=== PATIENT | female | born 1955 | race Caucasian/White ===

== ENCOUNTER 2023-04-01 12:50 | Emergency (ER) | payer SELFPAY ==
[2023-04-01 12:53] VITALS: BP 140/75; PULSE 71; RESP 18; TEMP 36.5; O2SAT 100
[2023-04-01] MEDS: Acetaminophen 500 MG TAB 1000 MG PO (13:30)
[2023-04-01] MEDS: Ketorolac 15 MG/ML VIAL IM (13:30)
--- NOTE | 2023-04-01 13:50 | DI.RAD_ITS ---
Exam(s) XR HAND RT COMPLETE EXAM: XR HAND RT COMPLETE CLINICAL HISTORY: dog, lac down to tendon volar hand, lacs digits. TECHNIQUE: 2D digital imaging was performed. COMPARISON: No exams were available for comparison FINDINGS: 3 views There is air in the soft tissues over the dorsal medial aspect of the hand. Appears to be soft tissu e injury-laceration. No fractures evident. No radiopaque foreign body. No evidence of osteomyelitis. IMPRESSION: Soft tissue laceration as described above. No acute osseous findings. DATA REPOSITORY: RADIATION DOSE DELIVERED:
--- NOTE | 2023-04-01 13:50 | DI.RAD_ITS ---
Exam(s) XR WRIST RT COMPLETE EXAM: XR WRIST RT COMPLETE CLINICAL HISTORY: dog, lac down to tendon volar hand. TECHNIQUE: 2D digital imaging was performed. COMPARISON: No exams were available for comparison FINDINGS: 3 views There is soft tissue laceration over the dorsal medial aspect of the hand. No radiopaque foreign bod y. No evidence of fracture nor bone erosion. Bone density normal. No osseous lesions. IMPRESSION: Soft tissue injury. No osseous findings. DATA REPOSITORY: RADIATION DOSE DELIVERED:
--- NOTE | 2023-04-01 14:23 | ED.GENADUL_ITS ---
Discharge Plan Disposition Patient Disposition: Home Condition: Good Discharge Details Clinical Impression: Dog bite of right hand, Laceration of hand Primary Care Provider: Damaris,Local ED Provider: Thea Marquez Home Meds and New Rx's Prescriptions: New amoxicillin-pot clavulanate 875-125 mg tablet 1 tab PO Q12H Qty: 20 0RF No Action amlodipine 5 mg tablet 5 mg PO DAILY omeprazole 20 mg capsule,delayed release(DR/EC) 20 mg PO DAILY zolpidem 5 mg tablet 5 mg PO DAILY rosuvastatin 5 mg tablet 5 mg PO DAILY duloxetine 20 mg capsule,delayed release(DR/EC) 20 mg PO DAILY Discharge Instructions Instructions: Animal Bite (ED), Care For Your Stitches (ED), Laceration (ED) Additional Instructions: Take the antibiotic twice a day until it is all gone. Take tylenol and ibuprofen over the counter as needed for pain; follow the directions on the bottle. Keep your wound clean and dry. You can use antibiotic ointment once a day. Call your primary care doctor tomorrow to schedule an appointment to be seen within the next 4 days to follow up on your visit here. Have your sutures removed at your PCP office. Return to the emergency department for new or worsening symptoms including thick green/white discharge from your wound, severe pain, numbness/tingling, difficulty using your hand, fever, or if you have any other concerns. Referrals: [facility] [Provider Group] Medical Decision Making 68yo F with HTN presenting for dog bite to right hand; friend's dog, reportedly UTD on immunizations. Last tetanus 7 days ago. Vital signs reassuring, several lacerations to digits and large deep lac to volar surface of hand with exposed tendon. Subjectively diminished sensation to distal 4th digit, diminished strength with thumb adduction. Tylenol and Toradol for pain. PO augmentin. Plain film right hand and wrist reviewed, no displaced fracture or foreign body on my view, agree with radiology read below. Given bite to hand with exposed tendon, orthopedics consulted; wound washed out and loosely approximated with sutures. Animal bite form faxed. Discharged home; discharge instructions including return precautions were reviewed with patient who verbalized understanding. Alll questions were answered and they are in full agreement with the plan. Imaging Data Radiologic Study: Imaging: X-Ray Radiologist's impression: IMPRESSION: Soft tissue injury.? No osseous findings. Radiologic Study #2: Imaging: X-Ray Radiologist's impression: IMPRESSION: Soft tissue laceration as described above.? No acute osseous findings. HPI General Mode of arrival: ambulatory . Date/Time Provider Initiated Documentation: 04/01/23 13:01 . Limitations to Documentation: no limitations . Information obtained by: patient . HPI Narrative: 68yo F with HTN presenting for dog bite. Friend's dog (chocolate lab type) bit her right hand. Did not fall or strike her head. No pain or injury elsewhere. States no numbness/tingling and that she is able to move her hand normally. She was in her usual state of health prior to this event. No fevers, chills, rash, nausea, vomiting, chest pain, shortness of breath, or other concerns. Related Data Home Medications Medication Instructions Recorded Confirmed amlodipine 5 mg tablet 5 mg PO DAILY 04/01/23 04/01/23 amoxicillin 875 mg-potassium 1 tab PO Q12H #20 tabs 04/01/23 clavulanate 125 mg tablet duloxetine 20 mg capsule,delayed 20 mg PO DAILY 04/01/23 04/01/23 release omeprazole 20 mg capsule,delayed 20 mg PO DAILY 04/01/23 04/01/23 release rosuvastatin 5 mg tablet 5 mg PO DAILY 04/01/23 04/01/23 zolpidem 5 mg tablet 5 mg PO DAILY 04/01/23 04/01/23 Previous Rx's Medication Instructions Recorded amoxicillin 875 mg-potassium 1 tab PO Q12H #20 tabs 04/01/23 clavulanate 125 mg tablet Allergies Allergy/AdvReac Type Severity Reaction Status Date / Time Dermabond AdvReac Swelling/Ed Uncoded 04/01/23 14:54 babatunde General Stated Complaint: AnimalBite ELIZABETH: 3 Review of Systems Narrative: see HPI PFSH All Active Problems (Updated 04/01/23 @ 17:10 by Thea Marquez MD) Dog bite of right hand (Acute) Laceration of hand (Acute) Social History Smoking risk assessment performed?: No Substance use type: does not use Exam Narrative Exam Narrative: General: Alert, well appearing, well nourished Head: Normocephalic, atraumatic Neck: Trachea midline, Neck supple. Cardiac: RRR, no murmurs appreciated Resp: No respiratory distress. CTAB. Abd: Soft, non-distended, nontender : No suprapubic tenderness. No CVA tenderness. Extremities: Right hand with 3cm lunate laceration/avulsion to volar aspect of distal hand, exposed tendon, tendons appear intact. 1cm laceration between 4th and 4th digits. 1cm laceration to proximal phalanx of 4th digit. Subjectively diminished senation to distal 4th digit, otherwise sensation intact thorughout right hand. Full ROM with flexion and extension at all digits, slightly diminished strength with thumb adduction. Good radial pulse. Capillary refill intact. Neurologic: GCS 15. Moves all extremities freely against gravity Course Vital Signs Vital signs: Vital Signs Temperature 36.5 C 04/01/23 12:53 Pulse 71 04/01/23 12:53 Respiratory Rate 18 04/01/23 12:53 Blood Pressure 140/75 04/01/23 12:53 Pulse Oximetry 100 04/01/23 12:53 Temperature 36.5 C 04/01/23 12:53 Temperature Source Skin 04/01/23 12:53 Pulse 71 04/01/23 12:53 Respiratory Rate 18 04/01/23 12:53 Blood Pressure 140/75 04/01/23 12:53 Blood Pressure Position Sitting 04/01/23 12:53 Pulse Oximetry 100 04/01/23 12:53 Oxygen Delivery Method Room Air 04/01/23 12:53 Oxygen Flow Rate 0 04/01/23 12:53 Pain Level 9 04/01/23 12:53
[2023-04-01] MEDS: Amoxicillin 875/Clav. 125 TAB PO (17:36)
--- NOTE | 2023-04-02 07:29 | OCONE_ITS ---
Date of service: 04/01/23 Time of Service: 16:00 History of Present Illness History of Present Illness Chief Complaint: Dog Bite (Deep) involving Right Hand and Fingers Narrative: Tahira is a 68-year-old active female who unfortunately was attacked by dog today. The medical facilities section director was present, who thought that the dog was in his appropriate cage, however, the dog attacked Tahira grabbing onto the right hand. There is obvious complex laceration to the right hand as well as the ring finger and she presented to the emergency department. X-rays were performed which did not show any bony involvement. She denied any significant numbness or tingling about the right hand. No other injuries identified. Consults Consult date: 04/01/23 Requesting physician: Thea Marquez Consult Reason Deep Laceration from Dog Bite to Right Hand and Fingers Assessment and Plan Assessment and plan (1) Dog bite of right hand: Status: Acute (2) Laceration of hand: Status: Acute Assessment and plan: Tahira is a 68-year-old female who suffered a dog bite injury to the right hand. There are 3 primary lacerations. The 1 over the hand has tendon exposed at the depths of the wound and some involvement of the tendon itself but no jose laceration of the tendon without defect notable on examination. There is no gross contamination and therefore I recommended direct closure after extensive irrigation and debridement. The wound within the webspace is concerning, with this location, that it could involve neurovascular structures but there is no identifiable nerve injury at this time. Likewise the laceration over the ulnar aspect of the ring finger is also concerning with his location that it could involve neurovascular structures but once again she seems to test fine these are noninvolved. There is no identifiable defect with her tendon examination and therefore, while they were in the zone of injury, they do not look to be directly involved and do not need any intervention. I would recommend Augmentin here in the emergency department and a 3-day course of Augmentin for prophylaxis against the dog bite and potential infection. The wounds were dressed with Xeroform, 4 x 4's, Kerlix. I recommend that she keep these in place for at least 2 to 3 days and then change them with gauze, allow them to get wet and clean with soapy clean water. She should have a follow-up within 7 days for repeat examination and potential suture removal. Review of Systems All systems reviewed & are unremarkable except as noted in HPI and below PFSH All Active Problems Dog bite of right hand (Acute) Laceration of hand (Acute) Social History Smoking risk assessment performed?: No Substance use type: does not use Exam Narrative Exam Narrative: Evaluation of the right upper extremity shows a triangular type defect, apex proximal, over the dorsum of the hand, approximately 8 cm. There is obvious tendon and venous structures deep. There is no active bleeding. There is no gross contamination. She is able to demonstrate active finger extension as well as independent index finger extension and independent little finger extension. As she goes through range of motion including flexion and extension there is some minor trauma seen to some of the tendon but no jose tendon tearing or laceration. There is no defect with the range of motion. Likewise, she has intact thumb extension without defect although this tendon is proximal to the zone of injury. More distally she has a 2 cm laceration between the fourth and fifth digits which is into the subcutaneous tissue. She also has a small L- shaped laceration, about 2 cm, over the ulnar aspect of the ring finger. There is no defect to finger abduction or adduction. No deficit to finger flexion. She endorses full sensation over the entire little finger as well as the radial and ulnar aspects of the ring finger. No jose numbness is appreciated over the dorsum of the digits although there is some decrease sensation over the dorsum of the hand just distal to the skin flap. Results Last Vital Signs Temp 36.5 C 04/01/23 12:53 Pulse 71 04/01/23 12:53 Resp 18 04/01/23 12:53 BP 140/75 04/01/23 12:53 Pulse Ox 100 04/01/23 12:53 Imaging Imaging Studies: X-ray of the right wrist and hand shows soft tissue defect but no bony injury. No joint subluxation or dislocation. Procedures Laceration Right hand and fingers: Site: hand Side (if applicable): right Size (cm): 8 Description: flap Depth: involves muscle layer and involves tendon (Down to the peritenon but not through the tendon) Anesthetic used: lidocaine 1% Anesthesia technique: local infiltration Amount (ml): 20 Pre-repair: wound explored, irrigated extensively and deep structures intact Skin layer closed with: other (Nylon) Size (cm): 4-0 Right 4-5 webspace: Site: hand Side (if applicable): right Size (cm): 2 Description: linear Depth: simple, single layer Anesthetic used: lidocaine 1% Anesthesia technique: local infiltration Amount (ml): 5 Pre-repair: wound explored, irrigated extensively and deep structures intact Skin layer closed with: other (Nylon) Size (cm): 4-0 Right ring finger: Site: hand Side (if applicable): right Size (cm): 2 Description: irregular Depth: involves muscle layer Anesthetic used: lidocaine 1% Anesthesia technique: local infiltration Amount (ml): 5 Pre-repair: wound explored, irrigated extensively and deep structures intact Skin layer closed with: other (Nylon) Size (cm): 4-0
== END 2023-04-01 17:48 | disposition home or self-care (01) ==
PROVIDERS: Emergency Provider Student in an Organized Health Care Education/Training Program
DX: S61.451A Open bite of right hand, initial encounter (principal); W54.0XXA Bitten by dog, initial encounter; S61.411A Laceration without foreign body of right hand, initial encounter
CPT/HCPCS: 12001; 12031; 13132; 13133; 99283; 73110; 73130; 99284; J1885